=== PATIENT | female | born 1945 | race Caucasian/White ===

== ENCOUNTER → 2025-03-16 13:31 | Outpatient (REF) | payer MEDICARE, OTHER, SELFPAY | LOC: RAD 13:31 | PROVIDERS: ATTENDING PHYSICIAN Student in an Organized Health Care Education/Training Program | DX: I35.0 Nonrheumatic aortic (valve) stenosis (principal) | CPT/HCPCS: 74174; 75572; Q9967 ==

== ENCOUNTER 2025-03-23 11:24 | Day surgery (SDC) | payer MEDICARE, OTHER, SELFPAY ==
[2025-03-23] VITALS (8 sets, daily range): BP systolic 142–165; BP diastolic 60–128; BMI 32.3
[2025-03-23 12:12] LABS: Glucose - Point of Care 124 mg/dl (70-99)
[2025-03-23] MEDS: LOW STRENGTH ASPIRIN 324 MG PO (12:28)
--- NOTE | 2025-03-23 14:21 | ITS.CL.PN ---
[facility] - Procedure Note
Procedure
Procedure Note:
CARDIAC CATHETERIZATION REPORT
Date of Procedure: 03/23/2025
Referring: Dr. Chente Bennett MD
Indication: aortic valve stenosis
PROCEDURE(S)
1. right heart catheterization
2. coronary angiography
ACCESS
1. 6F left radial artery (note: right radial small and from left radial access we were unable to get a wire into the ascending aorta due to severe aortic tortuosity; closure: TR band)
1. 6F right femoral artery (note: 45 cm sheath used given severe tortuosity; closure: Perclose x1)
2. 5F right antecubital vein (closure: manual hemostasis)
CATHETERS
1. 5F [place]
2. 6F JR4
3. 6F JL4
MODERATE SEDATION: 35 minutes of moderate sedation was utilized. An independent emergency medical service manager was present to assist with and help manage the patient's level of consciousness and physiologic status.
HEMODYNAMIC DATA
AO 184/88 (mean 125) mmHg
RA 9 mmHg
RV 43/8 (EDP 12) mmHg
PA 45/22 (mean 32) mmHg
PCWP 18 mmHg
SaO2 91.1%
SvO2 63.3%
Hb 16.1 g/dL
CO/CI 3.4/2.05 L/min/m2
SVR 2695 dsc*-5
PVR 4.1 Wood units
CORONARY ANGIOGRAPHY
Dominance: right
LM: Large vessel with widely patent stent
LAD: Large vessel giving rise to a moderate caliber D1, moderate caliber D2, and small D3 before wrapping around the apex. There are patent stents extending from the mid LAD back into the left main. There is diffuse mild ISR. The D1 and D2 both have
moderate focal ostial disease. The small inferior limb of the D1 fills via late left to left collaterals.
LCx: Moderate caliber vessel giving rise to a small OM1 and moderate caliber OM2. There are stents extending from the proximal circumflex into the proximal OM2. There is moderate diffuse ISR.
RCA: Large vessel giving rise to a small RPDA and numerous small RPL branches. There is diffuse mild disease.
CONCLUSIONS
1. Non-obstructive coronary artery disease in a right dominant system.
2. Mildly elevated biventricular filling pressures, moderate predominantly post-capillary pulmonary hypertension, and reduced cardiac index with high SVR.
RECOMMENDATIONS
1. Secondary prevention of coronary artery disease
2. Proceed with TAVR planning
Copy to: Dr. Chente Bennett MD (soil surveyor); Dr. Carlos Manuel Wallace MD (PCP)
Signed: Sebastien Suárez MD, PhD
[2025-03-23 16:03] LABS: Glucose - Point of Care 94 mg/dl (70-99)
--- NOTE | 2025-03-23 16:42 | PTCARENOTE ---
1630 tissue technician team at the bedside to obtain Echocardiogram per provider request.
== END 2025-03-23 18:35 | disposition home or self-care (01) ==
LOC: CATH 11:24
PROVIDERS: ATTENDING PHYSICIAN Student in an Organized Health Care Education/Training Program; FAMILY PHYSICIAN Internal Medicine
DX: I25.10 Atherosclerotic heart disease of native coronary artery without angina pectoris (principal); I27.20 Pulmonary hypertension, unspecified; I08.0 Rheumatic disorders of both mitral and aortic valves; I35.0 Nonrheumatic aortic (valve) stenosis; Z79.84 Long term (current) use of oral hypoglycemic drugs; Z79.02 Long term (current) use of antithrombotics/antiplatelets; Z79.899 Other long term (current) drug therapy; I10 Essential (primary) hypertension; I97.89 Other postprocedural complications and disorders of the circulatory system, not elsewhere classified; I25.2 Old myocardial infarction
CPT/HCPCS: 99152; 99153; 82962; 93005; 93306; 93456; 93460; C1760; C1769; C1894; Q9967